=== PATIENT | female | born 1935 | race Caucasian/White ===

== ENCOUNTER → 2017-01-29 | Outpatient (CLI) | payer OTHER ==
[~2017-01-29] MED LIST: ACETAMINOPHEN-1 EAC1 PO; ACTONEL 150 MG150 MG PO; ACTONEL150 MG OR; ADULT LOW DOSE81 MG OR; ASPIRIN81 M2 PO; AVALIDE 150-121 EACH OR; AVAPRO 150 MG150 M1 PO; CALCIUM 600 +1 EAC1 OR; CALCIUM 600 +1 EAC1 PO; CENTRUM TABLET1 TAB OR; CO Q-10100 MG PO; COUMADIN 5 MG TA5 M1 OR; COUMADIN 5 MG TA5 M1 PO; COUMADIN7.5 MG PO; FISHOIL OR; GABAPENTIN100 MG OR; GABAPENTIN100 MG PO; HYDROCODON-ACE1 EAC5 OR; HYDROCODON-ACE1 EAC8 OR; K-DUR 20 MEQ T20 MEQ PO; LASIX 40 MG TAB40 M1 PO; LEVOTHYROXIN0.112 M1 OR; LEVOTHYROXIN0.125 M1 PO; LEVOTHYROXINE 0.15MG PO; MULTIVITAMINS1 EAC7 PO; NEURONTIN300 MG PO; PENTOXIFYLLINE400 MG PO; POTASSIUM20 PO; PRAVACHOL40 MG PO; PROPAFENONE 22225 M1 PO; REQUIP4 MG OR; REQUIP4 MG PO; RYTHMOL SR325 MG PO; RYTHMOL225 MG OR; SIMVASTATIN40 MG OR; TESSALON PERLE100 MG PO; VERAPAMIL ER120 MG PO; VERAPAMIL ER180 M1 PO; VERAPAMIL ER180 MG OR; VITAMIN D1000 UNI1 OR; VITAMIN D3400 UNIT PO
== END ==
LOC: RAD 01:08
DX: Z12.31 Encounter for screening mammogram for malignant neoplasm of breast (principal)

== ENCOUNTER → 2017-08-05 | Outpatient (CLI) | payer OTHER | LOC: CAT 09:13 | DX: R91.1 Solitary pulmonary nodule (principal); R91.8 Other nonspecific abnormal finding of lung field; K80.20 Calculus of gallbladder without cholecystitis without obstruction ==

== ENCOUNTER 2017-11-02 11:26 | Inpatient (IN) | payer OTHER ==
[~2017-11-02] VITALS: Ht 170.2 cm; Wt 79.4 kg
--- NOTE | ~2017-11-02 | EKG ---
[address] [address] ELECTROCARDIOGRAM REPORT Name: MARVA BAXTERRONI BADILLOBILL Room #: 205- ADM IN M.R.#: [id number] Admission: 11/02/17 Attend Phys: Guillermo Morley MD Discharge: Date of : 35 Report #: [id number] THIS REPORT FOR: //name// [facility] Test Date: 2017-11-11 Test Time: 08:38:16 Pat Name: ARACELI BAXTER Department: Room: 205 Gender: F Piece Work Inspector: Juarez RAMIREZ : 1935 Requested By: Santiago Lim Order Number: [id number] MD: Santiago Lim Measurements Intervals [place] Rate: 68 P: 60 UT: 215 QRS: 41 QRSD: 108 T: 43 QT: 451 QTc: 480 Interpretive Statements Sinus rhythm Borderline prolonged UT interval Compared to ECG 11/04/2017 10:41:29 Atrial fibrillation no longer present Electronically Signed On 11-11-2017 9:09:16 MIXED SIGNAL DESIGN ENGINEER by Santiago Lim [email or web address] <ELECTRONICALLY SIGNED> By: Santiago Lim MD, [facility] 11/11/17 0909 7 7 Santiago Lim MD, [facility] /EPI
--- NOTE | ~2017-11-02 | EKG ---
[address] [address] ELECTROCARDIOGRAM REPORT Name: ARACELI BAXTER Room #: 442- ADM IN M.R.#: [id number] Admission: 11/02/17 Attend Phys: Guillermo Morley MD Discharge: Date of : 35 Report #: [id number] THIS REPORT FOR: //name// [facility] Test Date: 2017-11-04 Test Time: 10:41:29 Pat Name: ARACELI BAXTER Department: Room: 442 Gender: F Director Of Engineering: Juarez RAMIREZ : 1935 Requested By: Guillermo Morley Order Number: [id number] MD: aVn Verde Measurements Intervals [place] Rate: 129 P: NE: QRS: 55 QRSD: 101 T: 26 QT: 351 QTc: 515 Interpretive Statements Atrial fibrillation Possible left ventricular hypertrophy Prolonged QT interval Compared to ECG 11/02/2017 13:12:26 Sinus rhythm no longer present T-wave abnormality no longer present Electronically Signed On 11-04-2017 16:41:04 SOFTWARE QUALITY ASSURANCE ANALYST by Van Verde [email or web address] <ELECTRONICALLY SIGNED> By: Van Verde MD, [facility] 11/04/17 1641 1041 1041 Van Verde MD, [facility] /EPI
--- NOTE | ~2017-11-02 | CATHLAB ---
[facility] [place] [address] INVASIVE PROCEDURE REPORT Name: SAHILARACELI BILL Room #: 205-P [facility] IN ..#: [id number] Admission: 11/02/17 Attend Phys: Guillermo Morley, Discharge: 11/13/17 Date of : 35 Date of Service: 11/11/17 0834 Report #: [id number] THIS REPORT FOR: //name// CC: Guillermo Morley DATE OF SERVICE: 11/11/2017 PROCEDURE PERFORMED: Cardioversion. INDICATION: Atrial fibrillation. PROCEDURE: The potential benefits and risks of the procedure were discussed at length with the patient who understood. Full written and informed consent was obtained. The patient was sedated with intravenous Versed and fentanyl. 75 biphasic synchronous joules were applied to the chest with prompt conversion of atrial fibrillation to sinus rhythm. She remained in hemodynamically, electrically and neurologically stable condition and was transported back to her hospital room. SUMMARY: Successful cardioversion of atrial fibrillation to sinus rhythm. <ELECTRONICALLY SIGNED> By: Santiago Lim MD, FACC 11/13/17 1634 0834 1051 Santiago Lim MD, FACC /nt
--- NOTE | ~2017-11-02 | HC ---
[facility] [address] [place] [address] CONSULTATION Name: ARACELI BAXTER Room #: 205-P [facility] IN M.R.#: [id number] Admission: 11/02/17 Attend Phys: Guillermo Morley MD Discharge: 11/13/17 Date of : 35 Report #: [id number] THIS REPORT FOR: //name// CC: Guillermo Morley DATE OF SERVICE: 11/05/2017 HISTORY OF PRESENT ILLNESS: The patient is an 82-year-old white female admitted with cough, congestion, diagnosed with community-acquired pneumonia. She also has been diagnosed with atrial fibrillation and diastolic heart failure. Cardiology is involved. She has generalized weakness and debilitation and we are seeing her in rehabilitation medicine consultation. PAST MEDICAL HISTORY: Prior right hip replacement in 2010, right wrist fracture, left wrist surgery. She [facility], skin cancer removed, hip fracture repair in 1990. HABITS: No history of tobacco or alcohol abuse. MEDICATIONS: Please see the full medication listing. ALLERGIES: PENICILLIN, SULFA, CELEBREX. SOCIAL HISTORY: House, alone, one step, utilized a single point cane, would drive during the day, but not during the night, 2 daughters in the area. REVIEW OF SYSTEMS: Complains of some generalized weakness. Note, she is hard of hearing, does have a hearing aid. She has had vein issues and has been seen by the [facility] as noted above. No other focal extremity pain complaints. No current chest pain or shortness of breath or abdominal discomfort. PHYSICAL EXAMINATION: GENERAL: An 82-year-old white female in no obvious distress. VITAL SIGNS: Last recorded temperature 98, pulse 126, respirations 20, and blood pressure 105/66. The patient is alert, hard of hearing. HEENT: Appeared to be benign. NEUROLOGIC: Cranial nerves grossly intact. Facies are symmetric. She has functional range of motion of both upper extremities with strength grade 4-/5. DTRs are trace to 1. Lower extremities, no focal calf swelling, functional range of motion with strength grade 4-/5. DTRs are trace to 1. Tone appeared to be intact. She did try to get up in therapies yesterday, but was max assist, complained of dizziness. ASSESSMENT: An 82-year-old white female with the following problem list: 1. Medical complexity with generalized debilitation. [address] [address] CONSULTATION Name: ARACELI BAXTERHLEEN Room #: 205-P [facility] [place] IN M.R.#: [id number] Admission: 11/02/17 Attend Phys: Guillermo Morley MD Discharge: 11/13/17 Date of : 35 Report #: [id number] 2. Paroxysmal atrial fibrillation. 3. Community-acquired pneumonia. 4. Diastolic heart failure. 5. Abdominal aortic aneurysm. 6. Hypertension. 7. Hypercoagulable. PLAN: Therapy evaluations are underway. We will be glad to assist regarding rehab therapy issues as she further medically stabilizes. Insurance will need to be checked regarding rehab therapy options. Thank you for asking us to assist in this patient's care. <ELECTRONICALLY SIGNED> By: Tim Stone MD 11/14/17 1306 1155 1405 Tim Stone MD /PMT
--- NOTE | ~2017-11-02 | HC ---
[facility] [place] [address] CONSULTATION Name: ARACELI BAXTER Room #: 205-P ADM IN M.R.#: [id number] Admission: 11/02/17 Attend Phys: Guillermo Morley MD Discharge: Date of : 35 Report #: [id number] THIS REPORT FOR: //name// CC: Guillermo Morley REASON FOR CONSULTATION: I was asked to evaluate concerning pneumonia. HISTORY OF PRESENT ILLNESS: The patient is an 82-year-old admitted through the Emergency Room with a 3-day history of increasing cough, congestion, shortness of breath and low-grade fever. She has a history of atrial fibrillation, PENICILLIN AND SULFA ALLERGY. Placed on Levaquin. Her initial chest x-ray was clear. Subsequently, has developed bilateral pulmonary infiltrates. Within the first 24 hours of her admission, she developed nausea and vomiting. This lasted less than 24 hours. Oxygen requirements have been at 2 liters per nasal cannula. No documented fever during her hospitalization. Her white count remains normal. She was supratherapeutic on her INR and that has been adjusted. Cough was initially nonproductive, now is bringing up some bloody phlegm. Denies any chest pain. REVIEW OF SYSTEMS: No rashes, nausea, vomiting, diarrhea. She is eating lunch with a good appetite. No dysuria. She has had no travel. No HIV risk factors. She has had a previous pneumonia. Her immunizations are up-to-date for pneumococcal and influenza vaccinations. ALLERGIES: PENICILLIN, SULFA, CELEBREX. PAST MEDICAL HISTORY: Paroxysmal atrial fibrillation, diastolic heart failure, hypertension, hyperlipidemia, thoracic aneurysm, multiple fractures, vein surgery, skin cancer removal. SOCIAL HISTORY: Nonsmoker, no significant alcohol intake. FAMILY HISTORY: Noncontributory. REVIEW OF SYSTEMS: As noted above. PHYSICAL EXAMINATION: VITAL SIGNS: Afebrile, hemodynamically stable. GENERAL: She is alert and cooperative and pleasant, in no acute distress. She was sitting up, eating her lunch, in her chair. Oxygen at 2 liters per nasal cannula. SKIN: Unremarkable. She had 1+ peripheral edema in the lower extremities. HEENT: Unremarkable. NECK: Supple, no adenopathy. LUNGS: Consolidation of left base with some crackles in the right base posteriorly. No rub. [facility] [address] [place] [address] CONSULTATION Name: ARACELI BAXTER BILL Room #: 205-[facility] IN M.R.#: [id number] Admission: 11/02/17 Attend Phys: Guillermo Morley MD Discharge: Date of : 35 Report #: [id number] HEART: Irregular without appreciable murmur. ABDOMEN: Mildly distended, nontender, no hepatosplenomegaly or mass. LABORATORY DATA: Sodium 136, potassium 4.6, bicarbonate 26, creatinine 0.8. INR 3.4, hemoglobin 10.9, platelet count 173,000, white count 4.4. Urinalysis is pending. Influenza antigen negative. Blood cultures negative to date. X-ray of the abdomen showed mild gastric distention. Chest x-ray showed increased bilateral perihilar and basilar infiltrates, increase in the right upper lobe infiltrate today, has bilateral effusions. IMPRESSION: An 82-year-old with paroxysmal atrial fibrillation, presents with febrile syndrome associated with cough, mostly consistent with community-acquired pneumonia. May have been influenza at the onset. Also possible she could have aspirated after her admission leading to the bilateral infiltrates. Now with hemoptysis and elevated INR would raise a question of intrapulmonary hemorrhage. Overall, the patient appears relatively stable with stable oxygen requirements. Would recommend obtaining sputum culture. Check viral respiratory panel, urine antigens. Continue antibiotic coverage for both typical and atypical bacterial pathogens. Check BNP, further assess for component of heart failure. Control her INR. <ELECTRONICALLY SIGNED> By: Fish Tejada MD 11/09/17 1238 1305 [id number] Fish Tejada MD /nt
--- NOTE | ~2017-11-02 | EKG ---
[address] [employer] [place] [address] ELECTROCARDIOGRAM REPORT Name: ARACELI BAXTER Room #: 442-P [facility] IN M.R.#: [id number] Admission: 11/02/17 Attend Phys: Guillermo Morley MD Discharge: Date of : 35 Report #: [id number] THIS REPORT FOR: //name// [facility] Test Date: 2017-11-02 Test Time: 13:12:26 Pat Name: ARACELI BAXTER Department: Room: 2 Gender: F Gunner Mate: KFAVIAN : 1935 Requested By: Ladan Arredondo Order Number: [id number] MD: Santiago Lim Measurements Intervals [place] Rate: 79 P: 73 [place]: 183 QRS: 36 QRSD: 110 T: -52 QT: 479 QTc: 550 Interpretive Statements Sinus rhythm Borderline T abnormalities, diffuse leads Prolonged QT interval Compared to ECG 05/28/2015 16:38:48 T-wave abnormality now present Prolonged QT interval now present Electronically Signed On 11-03-2017 8:03:34 ACOUSTICAL TILE DRILL PRESS OPERATOR by Santiago Lim [email or web address] <ELECTRONICALLY SIGNED> By: Santiago Lim MD, [facility] 11/03/17 0803 1312 1312 Santiago Lim MD, [facility] /EPI
[~2017-11-02 11:26] MED LIST changes: +COUMADIN 2.5MG2.5 M1 PO; -COUMADIN7.5 MG PO; -LEVOTHYROXINE 0.15MG PO; +SYNTHROID125 MC1 PO
[2017-11-02 11:49] VITALS: BP 156/75
[2017-11-02 12:37] LABS: ABSOLUTE NEUTROPHILS 4.8 thou/uL (1.4-8.2); BASOPHILS 0.8 % (0.0-2.0); EOSINOPHILS 0.3 % (0.0-3.0); HEMATOCRIT 33.5 % (37.0-47.0); HEMOGLOBIN 11.1 gm/dL (12.0-15.0); LYMPHOCYTES 16.1 % (24.0-44.0); MCHC 33.2 g/dL (28.0-37.0); MCV 90.2 fL (80.0-100.0); MONOCYTES 8.3 % (1.0-8.0); PLATELET COUNT 220 thou/uL (150-400); POLYS 74.5 % (36.0-66.0); RBC 3.72 mil/uL (4.20-5.00); RDW 13.4 % (10.5-14.5); WBC 6.4 thou/uL (4.0-11.0)
[2017-11-02 12:47] LABS: CALCIUM 9.1 mg/dL (8.5-10.1); CREATININE 1.2 mg/dL (0.6-1.0); POTASSIUM 3.4 mmol/L (3.5-5.1)
[2017-11-02 13:56] LABS: INR 1.9; PROTIME 19.3 Seconds (9.3-11.4)
[2017-11-02 16:54] VITALS: BP 148/70
[2017-11-02 18:38] VITALS: BP 142/68
[2017-11-02 19:30] VITALS: BP 122/65
[2017-11-02 21:01] VITALS: BP 146/62
[2017-11-02] MEDS ORDERED: PACERONE 200 M200 MG PO (23:13)
[2017-11-02] MEDS ORDERED: DEMADEX20 MG PO (23:16)
[2017-11-03 04:55] VITALS: BP 138/66
[2017-11-03] MEDS ORDERED: TYLENOL325 MG PO ×2 (05:07→05:47)
[2017-11-03 07:55] LABS: HEMATOCRIT 34.4 % (37.0-47.0); HEMOGLOBIN 11.3 gm/dL (12.0-15.0); MCH 29.8 pg (26.0-34.0); MCV 90.5 fL (80.0-100.0); RBC 3.81 mil/uL (4.20-5.00); RDW 13.4 % (10.5-14.5); WBC 6.2 thou/uL (4.0-11.0)
[2017-11-03 08:09] VITALS: BP 128/73
[2017-11-03 16:13] VITALS: BP 95/52
[2017-11-03 20:52] VITALS: BP 114/90
[2017-11-04] VITALS (13 sets, daily range): BP systolic 66–117; BP diastolic 40–75
[2017-11-04 08:40] LABS: HEMATOCRIT 34.4 % (37.0-47.0); HEMOGLOBIN 11.2 gm/dL (12.0-15.0); MCH 29.9 pg (26.0-34.0); MCHC 32.7 g/dL (28.0-37.0); MCV 91.4 fL (80.0-100.0); RBC 3.76 mil/uL (4.20-5.00); RDW 13.7 % (10.5-14.5)
[2017-11-04 08:50] LABS: CALCIUM 8.1 mg/dL (8.5-10.1); CREATININE 1.3 mg/dL (0.6-1.0); POTASSIUM 3.2 mmol/L (3.5-5.1)
[2017-11-04 15:37] LABS: INR 1.6; PROTIME 16.5 Seconds (9.3-11.4)
[2017-11-05] VITALS (10 sets, daily range): BP systolic 104–120; BP diastolic 66–79
[2017-11-05 05:41] LABS: PROTIME 20.4 Seconds (9.3-11.4)
[2017-11-05 05:48] LABS: CALCIUM 7.7 mg/dL (8.5-10.1); CREATININE 1.1 mg/dL (0.6-1.0); MAGNESIUM 1.6 mg/dL (1.8-2.4)
[2017-11-05 05:50] LABS: POTASSIUM 4.5 mmol/L (3.5-5.1)
[2017-11-06] VITALS (7 sets, daily range): BP systolic 90–132; BP diastolic 44–88
[2017-11-06 03:55] LABS: INR 2.8; PROTIME 28.6 Seconds (9.3-11.4)
[2017-11-06 08:28] LABS: HEMATOCRIT 32.8 % (37.0-47.0); HEMOGLOBIN 10.9 gm/dL (12.0-15.0); MCH 29.9 pg (26.0-34.0); MCHC 33.1 g/dL (28.0-37.0); MCV 90.6 fL (80.0-100.0); RBC 3.62 mil/uL (4.20-5.00); RDW 13.8 % (10.5-14.5); WBC 4.4 thou/uL (4.0-11.0)
[2017-11-06 08:40] LABS: CALCIUM 8.2 mg/dL (8.5-10.1); CREATININE 0.8 mg/dL (0.6-1.0); MAGNESIUM 1.7 mg/dL (1.8-2.4); POTASSIUM 4.6 mmol/L (3.5-5.1)
[2017-11-07] VITALS: BP 107/55
[2017-11-07 04:04] VITALS: BP 116/66
[2017-11-07 12:36] LABS: INR 3.3; PROTIME 32.7 Seconds (9.3-11.4)
[2017-11-07 16:00] VITALS: BP 105/62
[2017-11-07 19:49] VITALS: BP 99/71
[2017-11-08 00:09] VITALS: BP 112/71
[2017-11-08 03:30] VITALS: BP 106/76
[2017-11-08 03:40] LABS: INR 3.4; PROTIME 34.1 Seconds (9.3-11.4)
[2017-11-08 16:27] LABS: URINE BILIRUBIN NEGATIVE (Negative); URINE BLOOD 1+ (Negative); URINE CLARITY CLEAR; URINE COLOR YELLOW; URINE GLUCOSE-RANDOM* NEGATIVE (Negative); URINE KETONES NEGATIVE (Negative); URINE LEUKOCYTES NEGATIVE (Negative); URINE NITRITE NEGATIVE (Negative); URINE PROTEIN (DIPSTICK) TRACE (Negative); URINE UROBILINOGEN 0.2 E.U./dl (0.2-1.0)
[2017-11-08 16:36] LABS: SQUAMOUS 0-3 Few /LPF (0-3); URINE RBC 0-2 Rare /HPF (0-2); URINE WBC None Seen /HPF (0-5)
[2017-11-08 16:37] LABS: BACTERIA None Seen /HPF (None Seen); CASTS None Seen /LPF (None Seen); CRYSTALS None Seen /LPF (None Seen)
[2017-11-08 17:34] VITALS: BP 91/60
[2017-11-08 19:52] VITALS: BP 110/65
[2017-11-09 04:42] VITALS: BP 101/69
[2017-11-09 05:13] LABS: HEMATOCRIT 30.3 % (37.0-47.0); HEMOGLOBIN 10.2 gm/dL (12.0-15.0); MCH 30.1 pg (26.0-34.0); MCHC 33.6 g/dL (28.0-37.0); MCV 89.8 fL (80.0-100.0); PLATELET COUNT 211 thou/uL (150-400); RBC 3.38 mil/uL (4.20-5.00); RDW 13.7 % (10.5-14.5); WBC 7.5 thou/uL (4.0-11.0)
[2017-11-09 05:20] LABS: PROTIME 30.1 Seconds (9.3-11.4)
[2017-11-09 05:29] LABS: CALCIUM 8.5 mg/dL (8.5-10.1); CREATININE 0.8 mg/dL (0.6-1.0); POTASSIUM 4.1 mmol/L (3.5-5.1)
[2017-11-09 06:55] LABS: ABSOLUTE NEUTROPHILS 5.3 thou/uL (1.4-8.2); PLATELET ESTIMATE NORMAL
[2017-11-09 08:57] VITALS: BP 93/57
[2017-11-09 19:35] VITALS: BP 88/60
[2017-11-10 00:10] VITALS: BP 105/64
[2017-11-10 03:22] LABS: HEMATOCRIT 28.1 % (37.0-47.0); HEMOGLOBIN 9.5 gm/dL (12.0-15.0); MCHC 33.6 g/dL (28.0-37.0); MCV 89.1 fL (80.0-100.0); PLATELET COUNT 259 thou/uL (150-400); RBC 3.16 mil/uL (4.20-5.00); RDW 13.8 % (10.5-14.5); WBC 8.8 thou/uL (4.0-11.0)
[2017-11-10 03:30] VITALS: BP 96/59
[2017-11-10 03:33] LABS: INR 2.9; PROTIME 29.1 Seconds (9.3-11.4)
[2017-11-10 03:43] LABS: CALCIUM 8.8 mg/dL (8.5-10.1); CREATININE 0.8 mg/dL (0.6-1.0); POTASSIUM 4.1 mmol/L (3.5-5.1)
[2017-11-10 05:12] LABS: ABSOLUTE NEUTROPHILS 6.6 thou/uL (1.4-8.2)
[2017-11-10 08:08] VITALS: BP 96/74
[2017-11-10 12:41] VITALS: BP 97/58
[2017-11-10 16:39] VITALS: BP 91/51
[2017-11-10 21:00] VITALS: BP 96/49
[2017-11-11] VITALS (7 sets, daily range): BP systolic 83–126; BP diastolic 50–74
[2017-11-12 01:08] LABS: ADENOVIRUS Negative (Negative); INFLUENZA A Negative (Negative); INFLUENZA B Negative (Negative); METAPNEUMOVIRUS Negative (Negative); PARAINFLUENZA 1 Negative (Negative); PARAINFLUENZA 2 Negative (Negative); PARAINFLUENZA 3 Negative (Negative); RHINOVIRUS Negative (Negative); RSV A Negative (Negative); RSV B Negative (Negative)
[2017-11-12 03:32] LABS: INR 2.9; PROTIME 29.3 Seconds (9.3-11.4)
[2017-11-12 04:00] VITALS: BP 101/57
[2017-11-12 08:00] VITALS: BP 106/64
[2017-11-12] MEDS ORDERED: PACERONE 200 M200 M1 PO (08:30)
[2017-11-12 11:42] VITALS: BP 109/60
[2017-11-12 15:35] VITALS: BP 95/55
[2017-11-12 19:52] VITALS: BP 98/59
[2017-11-13 05:13] VITALS: BP 119/66
[2017-11-13 07:50] VITALS: BP 128/66
[2017-11-13 09:40] VITALS: BP 128/66
== END 2017-11-13 13:21 | DRG 871 ==
LOC: ER 11:26 → EROBS 13:38 → 4S 13:38 → 2N 11-05 09:33
PROVIDERS: Emergency Medicine; Family Medicine; Internal Medicine; Nurse Practitioner Gerontology; Specialist
PROC: 5A2204Z Restoration of Cardiac Rhythm, Single (ICD-10-PCS; principal; 2017-11-02)
DX: A41.9 Sepsis, unspecified organism (principal); J18.9 Pneumonia, unspecified organism; R04.2 Hemoptysis; I50.32 Chronic diastolic (congestive) heart failure; D68.59 Other primary thrombophilia; N17.9 Acute kidney failure, unspecified; I48.0 Paroxysmal atrial fibrillation; I11.0 Hypertensive heart disease with heart failure; R09.02 Hypoxemia; E78.5 Hyperlipidemia, unspecified; I71.2 Thoracic aortic aneurysm, without rupture; I71.4 Abdominal aortic aneurysm, without rupture; Z79.01 Long term (current) use of anticoagulants; Z79.899 Other long term (current) drug therapy; Z79.1 Long term (current) use of non-steroidal anti-inflammatories (NSAID); Z88.0 Allergy status to penicillin; Z88.2 Allergy status to sulfonamides; Z88.8 Allergy status to other drugs, medicaments and biological substances
CPT/HCPCS: 10081; 10195

== ENCOUNTER → 2017-12-11 | Outpatient (CLI) | payer OTHER ==
[~2017-12-11] MED LIST changes: +DEMADEX20 MG PO; +PACERONE 200 M200 M1 PO; +PACERONE 200 M200 MG PO; +TYLENOL325 MG PO
== END ==
LOC: RAD 11:27
DX: J18.9 Pneumonia, unspecified organism (principal)

== ENCOUNTER → 2018-02-04 | Outpatient (CLI) | payer OTHER | LOC: RAD 01:09 | DX: Z12.31 Encounter for screening mammogram for malignant neoplasm of breast (principal) ==

== ENCOUNTER → 2018-03-30 | Outpatient (CLI) | payer OTHER | LOC: ULTRA 07:02 | DX: N85.8 Other specified noninflammatory disorders of uterus (principal) ==

== ENCOUNTER 2018-04-12 18:17 | Emergency (ER) | payer OTHER ==
[~2018-04-12] VITALS: Ht 170.2 cm; Wt 61.2 kg
[2018-04-12 19:06] LABS: INR 1.7; PROTIME 17.6 Seconds (9.3-11.4)
== END 2018-04-12 20:02 | disposition home or self-care (01) ==
LOC: ER 18:17
PROVIDERS: Emergency Medicine
DX: R04.0 Epistaxis (principal); R79.1 Abnormal coagulation profile; Z85.828 Personal history of other malignant neoplasm of skin; Z96.641 Presence of right artificial hip joint; Z88.0 Allergy status to penicillin; Z88.2 Allergy status to sulfonamides